=== PATIENT | female | born 1990 | race Caucasian/White ===

== ENCOUNTER 2023-11-01 16:21 | Emergency (ER) | payer OTHER ==
[2023-11-01 17:44] VITALS: BP 141/93; PULSE 65; RESP 18; O2SAT 100
[2023-11-01] MEDS ORDERED: TORAdol 30 mg Injection IM ONE (17:59)
[2023-11-01] MEDS ORDERED: Rocephin 1000 MG INJ IM ONE (17:59)
--- NOTE | 2023-11-01 18:08 | ERPHSYRPT ---
- History of Present Illness Time Seen by Provider: 11/01/23 18:06 Source: patient Exam Limitations: no limitations Patient Subjective Stated Complaint: patient complains of "tooth" pain 8/10 on right since thursday with facial swelling, unable to eat or drink. pain has now radiated into jaw and into the ear. has been taking tylenol, ibuprofen, and anbesol since Thursday with no relief. has an appointment with oral surgeon tomorrow but the pain was just too much to take. Triage Nursing Assessment: patient ambulated per self to room with no difficulty. patient oral cavity on right side is very erythamatous and red. very back tooth is partially erupted. facial swelling on right side of face. patient Physician History: patient complains of "tooth" pain 8/10 on right since thursday with facial swelling, unable to eat or drink. pain has now radiated into jaw and into the ear. has been taking tylenol, ibuprofen, and anbesol since Thursday with no relief. has an appointment with oral surgeon tomorrow but the pain was just too much to take. Timing/Duration: day(s) (2 days) Severity: severe Modifying Factors: Improves With: acetaminophen, ibuprofen Associated Symptoms: denies symptoms Allergies/Adverse Reactions: erythromycin base [Erythromycin Base] Adverse Reaction (Intermediate, Verified 05/25/15 18:13) shaking sulfamethoxazole [From Mayra] Adverse Reaction (Intermediate, Verified 05/25/15 18:13) Nausea and Vomiting trimethoprim [From ] Adverse Reaction (Intermediate, Verified 05/25/15 18:13) Nausea and Vomiting Home Medications: Escitalopram Oxalate [Lexapro] 10 mg PO DAILY 11/01/23 [History] Hx Tetanus, Diphtheria Vaccination/Date Given: Yes Hx Influenza Vaccination/Date Given: No Hx Pneumococcal Vaccination/Date Given: No Immunizations Up to Date: Yes Travel Risk - International Travel Have you traveled outside of the country in past 3 weeks: No - Coronavirus Screening Are you exhibiting any of the following symptoms?: No Close contact with a COVID-19 positive Pt in past 14-21 Days: No - Vaccine Status Have you recieved a Covid-19 vaccination: No - Review of Systems Constitutional: No Symptoms Eyes: No Symptoms Ears, Nose, & Throat: Loose Teeth Respiratory: No Symptoms Cardiac: No Symptoms Abdominal/Gastrointestinal: No Symptoms Genitourinary Symptoms: No Symptoms Musculoskeletal: No Symptoms Skin: No Symptoms Neurological: No Symptoms Psychological: No Symptoms - Past Medical History Pertinent Past Medical History: Yes Neurological History: No Pertinent History ENT History: No Pertinent History Cardiac History: Other Respiratory History: No Pertinent History Endocrine Medical History: No Pertinent History Musculoskeletal History: No Pertinent History GI Medical History: No Pertinent History History: No Pertinent History Psycho-Social History: Depression Female Reproductive Disorders: No Pertinent History Other Medical History: mitral valve and supraventricular tachycardia - Past Surgical History Past Surgical History: Yes Neuro Surgical History: No Pertinent History Cardiac: No Pertinent History Respiratory: No Pertinent History Gastrointestinal: No Pertinent History Genitourinary: No Pertinent History Musculoskeletal: No Pertinent History Female Surgical History: Dilation & Curettage Other Surgical History: D&C x 3, oral surgery as a child - Social History Smoking Status: Never smoker Exposure to second hand smoke: No Alcohol Use: None Drug Use: none Patient Lives Alone: No - Female History Hx Last Menstrual Period: 10/29/23 Hx Now: No - Nursing Vital Signs Nursing Vital Signs: Initial Vital Signs Pulse Rate 65 11/01/23 16:22 Respiratory Rate 18 11/01/23 16:22 Blood Pressure 141/93 11/01/23 16:22 O2 Sat by Pulse Oximetry 100 11/01/23 16:22 Pain Scale Pain Intensity 8 - Physical Exam General Appearance: no apparent distress, alert Eye Exam: PERRL/EOMI, eyes nml inspection Ears, Nose, Throat Exam: normal ENT inspection, TMs normal, pharynx normal, moist mucous membranes, other (right upper molar Infection) Neck Exam: normal inspection, non-tender, supple, full range of motion Respiratory Exam: normal breath sounds, lungs clear, No respiratory distress Cardiovascular Exam: regular rate/rhythm, normal heart sounds, normal peripheral pulses Gastrointestinal/Abdomen Exam: soft, normal bowel sounds, No tenderness, No mass Back Exam: normal inspection, normal range of motion, No CVA tenderness, No vertebral tenderness Extremity Exam: normal inspection, normal range of motion, pelvis stable Neurologic Exam: alert, oriented x 3, cooperative, normal mood/affect, nml cerebellar function, nml station & gait, sensation nml, No motor deficits Skin Exam: normal color, warm, dry, No rash Lymphatic Exam: No adenopathy SpO2: 100 - Course Nursing assessment & vital signs reviewed: Yes Ordered Tests: Medication Summary Discontinued Medications Generic Name Dose Route Start Last Admin Trade Name Nichol PRN Reason Stop Dose Admin Ceftriaxone Sodium 1,000 mg 11/01/23 17:59 Ceftriaxone Sodium 1000 Mg Inj Vial IM 11/01/23 18:00 STAT ONE Ketorolac Tromethamine 60 mg 11/01/23 17:59 Ketorolac Tromethamine 30 Mg/Ml Inj IM 11/01/23 18:00 STAT ONE - Progress Progress: improved, pain not gone completely Counseled pt/family regarding: diagnosis, need for follow-up Medical Desision Making - Diagnostic Testing Diagnostic test were ordered, analyzed, and reviewed by me: No - Risk of complications Minimal Risk: Minimal risk of morbidity - Departure Departure Disposition: Home Clinical Impression: Dental abscess Condition: Stable Critical Care Time: No Referrals: SYEDA ARMAS NP [Primary Care Provider] - Follow up/PCP as directed Instructions: Tooth Abscess (DC), Dental Pain (DC) Additional Instructions: Discharge/Care Plan ENDY LEAL was seen on 11/01/23 in the Emergency Room. The patient was counseled regarding Diagnosis,Lab results, Imaging studies, need for follow up and when to return to the Emergency Room. Prescriptions given: Discharge Note I have spoken with the patient and/or caregivers. I have explained the patient's condition, diagnosis and treatment plan based on the information available to me at this time. I have answered the patient's and/or caregiver's questions and addressed any concerns. The patient and/or caregivers have as good understanding of the patient's diagnosis, condition and treatment plan as can be expected at this point. The vital signs have been stable. The patient's condition is stable and appropriate for discharge from the emergency department. The patient will pursue further outpatient evaluation with the primary care physician or other designated or consulting physician as outlined in the discharge instructions. The patient and/or caregivers are agreeable to this plan of care and follow-up instructions have been explained in detail. The patient and/or caregivers have received these instruction. The patient/and or caregivers are aware that any significant change in condition or worsening of symptoms should prompt an immediate return to this or the closest emergency department or call 911. ENDY LEAL was seen on 11/01/23 n the Emergency Room. At that time you were treated for an emergent condition, during your visit Laboratory, Radiology and/or other procedures may have been ordered. It is very important that you follow-up with your Primary Care Physician SYEDA ARMAS within the next 24-48 hours to review your Emergency Room visit and the final results of testing that was ordered. Some test results such as Urine Cultures, Blood Cultures, and other cultures if ordered will not be finalized for 24-48 hours. If you do not have a Primary Care Provider please call the medical records department at [phone] ext [phone] to obtain a copy of your results or you may sign into our patient portal to obtain these results by visiting us @ [email or web address] and completing the following steps: 1. Click on the Patient Portal link 2. Click the Patient Self Enrollment Link to complete the enrollment form and entering your 3. Once the enrollment form is completed you will receive an email with a temporary ID and password at the email address you provided. 4. Next choose a user name and password. Your user name must be at least 4 characters long and your password must be at least 4 characters long. 5. Choose a security question from the list and provide your answer to the question. If you already have signed into the Health Portal you may access your Health Care Information 20/04 by the following steps: 1. Login to our website @ [email or web address] 2. Enter your original user name and password. FAQS The [facility] Health Portal is an online tool that contains your Lab Results, Radiology Reports, Visit History, Discharge Instructions and Health Summary Lab and Radiology Results will not be available for 72 hours on the portal. The Portal is a secure site, passwords are encryted and URLs are re-written so they cannot be copied and pasted. You and authorized family members are the only ones who can access your Portal. Also there is a timeout feature that protects your information if you leave the Portal page open. If you have technical difficulty please use the Contact Us link on the page this will allow you to submit any questions you have regarding the Portal or you may contact the Medical Record Department at [phone] ext [phone].
[2023-11-01] MEDS ORDERED: TORAdol 30 mg Injection ONE (18:09)
[2023-11-01] MEDS ORDERED: Rocephin 1000 MG INJ ONE (18:10)
[2023-11-01] MEDS ORDERED: XYLOCAINE 1% HCL 20 ML MDV ONE (18:10)
== END 2023-11-01 18:55 | disposition home or self-care (01) ==
LOC: ED 16:21
DX: K04.7 Periapical abscess without sinus (principal); K08.89 Other specified disorders of teeth and supporting structures; Z79.899 Other long term (current) drug therapy; Z28.310 Unvaccinated for COVID-19
CPT/HCPCS: 96372; 99283; J0696; J1885